=== PATIENT | male | born 1975 | race Caucasian/White ===

== ENCOUNTER 2016-10-12 08:11 | Emergency (ER) | payer OTHER ==
--- NOTE | 2016-10-12 10:13 | DIAGNOSTIC IMAGING REPORT ---
PROCEDURE: US VENOUS - LEFT EXT INDICATION: Intermittent left lower extremity swelling x 1 week, initial encounter TECHNIQUE: Duplex sonography of the deep venous system in the left lower extremity was performed. Compression and augmentation techniques were used. COMPARISON: None. FINDINGS: Normal compression of the greater saphenous, common femoral, superficial femoral, popliteal, peroneal, and posterior tibial veins. Normal augmentation. There is no evidence of superficial or deep venous thrombosis. IMPRESSION: 1. Negative venous ultrasound of the left lower extremity.
--- NOTE | 2016-10-12 12:44 | DIAGNOSTIC IMAGING REPORT ---
PROCEDURE: XR CHEST 1 VIEW INDICATION: CHEST PAIN TECHNIQUE: Portable AP view 09:00 a.m. COMPARISON: None. FINDINGS: Lungs are clear. Heart and mediastinum are normal. Thorax is normal. IMPRESSION: 1. Negative chest.
--- NOTE | 2016-10-12 15:37 | DIAGNOSTIC IMAGING REPORT ---
PROCEDURE: CTA THORAX WITH CONTRAST INDICATION: CHEST PAIN, initial encounter TECHNIQUE: 112 ml of Isovue 370 was injected intravenously and axial images were obtained of the entire thorax with 3D sagittal and coronal MIP reconstructions. COMPARISON: Chest x-ray 10/12/2016 FINDINGS: No evidence of pulmonary emboli. Lungs are clear. No adenopathy or effusion. Normal thoracic aorta without dissection or aneurysm. No coronary atherosclerosis. Heart size is normal. Normal visualized upper abdomen. Mild degenerative changes of the spine. IMPRESSION: 1. No evidence of pulmonary emboli, aortic dissection or aneurysm 2. Results discussed with Dr. Linares
--- NOTE | 2016-10-12 15:57 | ED CLINICAL REPORT ---
Clinical Report - Physicians/Mid Levels [facility] [address] [place] [address] 10/12/2016 8:14 Patient: ERIC CHIANG Time Seen: 09:00 Oct 12 2016. Arrived- By private vehicle. Historian- patient. CPT: ER phys charges level 5 plus (#[id number]). EKG interpretation (#[id number]). HISTORY OF PRESENT ILLNESS Chief Complaint: CHEST DISCOMFORT. At its maximum, severity described as moderate. When seen in the E.D., severity described as moderate. Modifying factors. Not worsened by anything. Not relieved by anything. It is described as pressure and tightness and it is described as located in the left chest area and left shoulder and arm. This started today This started just prior to arrival and today. He has had difficulty breathing. ( "pulling sensation in left leg" last week). and is still present. Onset during light activity. No nausea, vomiting, difficulty breathing or diaphoresis. Similar symptoms previously: None. Recent medical care: Not recently seen/assessed. REVIEW OF SYSTEMS No fever, chills, cough, pedal edema or calf pain. No fainting episodes, sore throat, abdominal pain, black stools or difficulty with urination. No skin rash, enlarged lymph nodes, joint pain or bloody stools. All systems otherwise negative, except as recorded above. PAST HISTORY See nurses notes. Hemorrhoids. No history of heart disease, lung disease, renal disease, neurological disease or GI disease. No history of hypertension, hyperlipidemia or diabetes mellitus. Problems: no known problems. Additional Surgeries: no known surgeries. Medications: None. Allergies: Penicillins. SOCIAL HISTORY Former smoker. Alcohol use. History of drug use: marijuana. FAMILY HISTORY Negative. ADDITIONAL NOTES The nursing notes have been reviewed. PHYSICAL EXAM Vital Signs: 10/12/2016 08:18 BP: 127/104. HR: 71. RR: 18. O2 saturation: 100%. Temp: 97.8 F. Pain level now: 3/10. Appearance: Alert. Anxious. Patient in mild distress. Eyes: Pupils equal, round and reactive to light. Eyes normal inspection. ENT: Ears normal. Nose normal. Pharynx normal. Neck: Normal inspection. Neck supple. CVS: Normal heart rate and rhythm. Heart sounds normal. Pulses normal. No cardiac murmur. Respiratory: No respiratory distress. Chest pain reproducible with palpation of the lateral and posterior chest wall, with movement of the trunk and left arm and with deep breathing (Sharp pain but different from the anterior pressure.). Breath sounds normal. Abdomen: Soft and nontender. Bowel sounds normal. Back: Normal external inspection. Skin: Skin warm. Normal skin color. No rash. Extremities: No calf tenderness. (Tender over the medial thigh.). Neuro: Oriented X 3. No motor deficit. No sensory deficit. Reflexes normal. LABS, X-RAYS, AND EKG EKG: Normal EKG. EKG #2: EKG time: (12:52 PM). No acute process. No acute ischemia. Normal sinus rhythm. Normal P waves. Normal SHANNON. Normal QRS complex. Normal axis. Normal ST and T waves. EKG unchanged when compared with prior EKG. The study has been interpreted contemporaneously. The study has been independently viewed by me. The EKG appears to be a good tracing. Chest X-ray: Normal Chest X-Ray. Chest CT: No infiltrate, pneumothorax, pleural effusion or aortic dissection or aneurysm present. No pulmonary embolism, mediastinal air, mediastinal mass or pericardial effusion. Chest CT performed with contrast. The study was independently viewed by me, interpreted by the radiologist and discussed with the radiologist. Lower Extremity Sonography: Negative study. Laboratory Tests: CBC w Diff: (DANIA: 10/12/2016 08:34) ( MsgRcvd 10/12/2016 09:11) Final results Test Result Flag Units (Reference) WHITE BLOOD COUNT 7.3 K/uL (4.5-11.5) RED BLOOD COUNT 5.09 M/uL (4.50-5.90) HEMOGLOBIN 14.9 gm/dL (13.5-17.5) HEMATOCRIT 44.2 % (41.0-53.0) MEAN CELL VOLUME 87 fL (80-100) MEAN CORPUSCULAR HGB 29 pg (26-34) MEAN CORPUSCULAR HGB CONC 34 g/dL (31-37) RED CELL DISTRIBUTION WIDTH 13.0 % (11.6-14.8) PLATELET COUNT 230 K/uL (150-400) NEUTROPHIL % 78.1 H % (50-75) LYMPH % 14.2 L % (25-40) MONO % 6.0 % (3-14) EOSINOPHIL % 0.9 % (0-4) BASOPHIL % 0.8 % (0-2) [id number]: (DANIA: 10/12/2016 08:34) ( MsgRcvd 10/12/2016 09:52) Final results Test Result Flag Units (Reference) D-DIMER QUANTITATIVE 0.39 ug/mLFEU (0.27-0.52) The primary value of this quantitative assay relates toits negative predictive value (i.e. exclusion) of pulmonaryembolism/deep vein thrombosis/DIC.Elevated levels of d-dimer may also occur with:, age, cancer, inflammation, liver disease,post-op, infection, hematoma, coronary disease, peripheralarteriopathy, bleeding disorders and thrombolytic treatment.Results should be correlated with other clinical andradiological data.Testing Methodology: Latex Immunoassay CMP: (DANIA: 10/12/2016 08:34) ( MsgRcvd 10/12/2016 09:14) Final results Test Result Flag Units (Reference) GLUCOSE 118 H mg/dL (70-110) BUN 11 mg/dL (7-18) CREATININE 0.9 mg/dL (0.6-1.3) Estimated GFR >60 mL/min Estimated GFR- >60 mL/min Note: Persistent reduction over 3 months in eGFR<60 mL/min/1.73 m2 defines CKD. Patients with eGFR values>=60 mL/min/1.73 m2 may also have CKD if evidence ofpersistent proteinuria. Additional information may be foundat [email or web address]. SODIUM 144 mmol/L (136-145) POTASSIUM 4.0 mmol/L (3.5-5.1) CHLORIDE 108 H mmol/L (98-107) CARBON DIOXIDE 23 mmol/L (21-32) CALCIUM 8.7 mg/dL (8.5-10.1) TOTAL PROTEIN 7.0 g/dL (6.4-8.2) ALBUMIN 3.8 g/dL (3.3-5.0) BILIRUBIN, TOTAL 0.3 mg/dL (0.0-1.0) ALKALINE PHOSPHATASE 48 U/L (46-116) AST (SGOT) 19 U/L (15-37) ALT (SGPT) 31 U/L (12-78) LIPASE 141 U/L (73-393) AMYLASE 46 U/L (25-115) CPK 157 U/L (24-260) TROPONIN I <0.05 L ng/mL (0.00-1.5) TROPONIN REFERENCE RANGE:<0.1 NEGATIVE0.1-1.5 INDETERMINANT>1.5 POSITIVE . PROGRESS AND PROCEDURES Course of Care: Toradol 30 mg IV and Ativan 0.5 mg IV NO real change. NTG times 3 no real change in pain White GI cocktail : No change. Pt with chest pressure that is severe but nothing appears to affect it . Not reproducible on exam very well. Does have an area of sharp CP that is point tender over the left , lateral chest wall but is not the same pain. CTA to r/o ascending disswection vs other chest pathology. No emergent condition identified to cause the anterior chest pressure. Pt will follow up with PCP to evaluate further. Patient/family counseled. Disposition: Discharged. Condition: stable. CLINICAL IMPRESSION Atypical chest pain .12 lead EKG performed. INSTRUCTIONS No strenuous activity. Rest. Avoid stimulants (such as cigarettes, coffee, cold medicines, sinus medicines, street drugs). Do not smoke. No alcohol. Warnings: Further evaluation is necessary. SEDATIVE MEDICATION: You were given sedative medication during your visit. Do not drive or operate dangerous machinery. GENERAL WARNINGS: Return or contact your physician immediately if your condition worsens or changes unexpectedly, if not improving as expected, or if other problems arise. Prescription Medications: Hydrocodone/APAP 5mg/325mg: take 1 to 2 orally every 6 hours as needed for pain. Dispense fifteen (15). No refills. Ibuprofen 600mg tablets: take 1 tablet orally every 8 hours as needed for pain. Dispense thirty (30). No refills. Soma 350 mg: Take 1 orally every 6 hours as needed for muscle spasm. Dispense twenty (20). No refills. Substitution is permissible. Understanding of the discharge instructions verbalized by patient. Follow-up with: [facility], , , [address], , [place], [address] Follow up in two days. Call for the next available appointment. (Electronically signed by Palomo Linares MD 10/13/2016 12:38)
--- NOTE | 2016-10-12 15:57 | ED CLINICAL REPORT ---
Clinical Report - Physicians/Mid Levels [facility] [address] [place] [address] 10/12/2016 8:14 Patient: ERIC CHIANG Time Seen: 09:00 Oct 12 2016. Arrived- By private vehicle. Historian- patient. CPT: ER phys charges level 5 plus (#[id number]). EKG interpretation (#[id number]). HISTORY OF PRESENT ILLNESS Chief Complaint: CHEST DISCOMFORT. At its maximum, severity described as moderate. When seen in the E.D., severity described as moderate. Modifying factors. Not worsened by anything. Not relieved by anything. It is described as pressure and tightness and it is described as located in the left chest area and left shoulder and arm. This started today This started just prior to arrival and today. He has had difficulty breathing. ( "pulling sensation in left leg" last week). and is still present. Onset during light activity. No nausea, vomiting, difficulty breathing or diaphoresis. Similar symptoms previously: None. Recent medical care: Not recently seen/assessed. REVIEW OF SYSTEMS No fever, chills, cough, pedal edema or calf pain. No fainting episodes, sore throat, abdominal pain, black stools or difficulty with urination. No skin rash, enlarged lymph nodes, joint pain or bloody stools. All systems otherwise negative, except as recorded above. PAST HISTORY See nurses notes. Hemorrhoids. No history of heart disease, lung disease, renal disease, neurological disease or GI disease. No history of hypertension, hyperlipidemia or diabetes mellitus. Problems: no known problems. Additional Surgeries: no known surgeries. Medications: None. Allergies: Penicillins. SOCIAL HISTORY Former smoker. Alcohol use. History of drug use: marijuana. FAMILY HISTORY Negative. ADDITIONAL NOTES The nursing notes have been reviewed. PHYSICAL EXAM Vital Signs: 10/12/2016 08:18 BP: 127/104. HR: 71. RR: 18. O2 saturation: 100%. Temp: 97.8 F. Pain level now: 3/10. Appearance: Alert. Anxious. Patient in mild distress. Eyes: Pupils equal, round and reactive to light. Eyes normal inspection. ENT: Ears normal. Nose normal. Pharynx normal. Neck: Normal inspection. Neck supple. CVS: Normal heart rate and rhythm. Heart sounds normal. Pulses normal. No cardiac murmur. Respiratory: No respiratory distress. Chest pain reproducible with palpation of the lateral and posterior chest wall, with movement of the trunk and left arm and with deep breathing (Sharp pain but different from the anterior pressure.). Breath sounds normal. Abdomen: Soft and nontender. Bowel sounds normal. Back: Normal external inspection. Skin: Skin warm. Normal skin color. No rash. Extremities: No calf tenderness. (Tender over the medial thigh.). Neuro: Oriented X 3. No motor deficit. No sensory deficit. Reflexes normal. LABS, X-RAYS, AND EKG EKG: Normal EKG. EKG #2: EKG time: (12:52 PM). No acute process. No acute ischemia. Normal sinus rhythm. Normal P waves. Normal SHANNON. Normal QRS complex. Normal axis. Normal ST and T waves. EKG unchanged when compared with prior EKG. The study has been interpreted contemporaneously. The study has been independently viewed by me. The EKG appears to be a good tracing. Chest X-ray: Normal Chest X-Ray. Chest CT: No infiltrate, pneumothorax, pleural effusion or aortic dissection or aneurysm present. No pulmonary embolism, mediastinal air, mediastinal mass or pericardial effusion. Chest CT performed with contrast. The study was independently viewed by me, interpreted by the radiologist and discussed with the radiologist. Lower Extremity Sonography: Negative study. Laboratory Tests: CBC w Diff: (DANIA: 10/12/2016 08:34) ( MsgRcvd 10/12/2016 09:11) Final results Test Result Flag Units (Reference) WHITE BLOOD COUNT 7.3 K/uL (4.5-11.5) RED BLOOD COUNT 5.09 M/uL (4.50-5.90) HEMOGLOBIN 14.9 gm/dL (13.5-17.5) HEMATOCRIT 44.2 % (41.0-53.0) MEAN CELL VOLUME 87 fL (80-100) MEAN CORPUSCULAR HGB 29 pg (26-34) MEAN CORPUSCULAR HGB CONC 34 g/dL (31-37) RED CELL DISTRIBUTION WIDTH 13.0 % (11.6-14.8) PLATELET COUNT 230 K/uL (150-400) NEUTROPHIL % 78.1 H % (50-75) LYMPH % 14.2 L % (25-40) MONO % 6.0 % (3-14) EOSINOPHIL % 0.9 % (0-4) BASOPHIL % 0.8 % (0-2) [id number]: (DANIA: 10/12/2016 08:34) ( MsgRcvd 10/12/2016 09:52) Final results Test Result Flag Units (Reference) D-DIMER QUANTITATIVE 0.39 ug/mLFEU (0.27-0.52) The primary value of this quantitative assay relates toits negative predictive value (i.e. exclusion) of pulmonaryembolism/deep vein thrombosis/DIC.Elevated levels of d-dimer may also occur with:, age, cancer, inflammation, liver disease,post-op, infection, hematoma, coronary disease, peripheralarteriopathy, bleeding disorders and thrombolytic treatment.Results should be correlated with other clinical andradiological data.Testing Methodology: Latex Immunoassay CMP: (DANIA: 10/12/2016 08:34) ( MsgRcvd 10/12/2016 09:14) Final results Test Result Flag Units (Reference) GLUCOSE 118 H mg/dL (70-110) BUN 11 mg/dL (7-18) CREATININE 0.9 mg/dL (0.6-1.3) Estimated GFR >60 mL/min Estimated GFR- >60 mL/min Note: Persistent reduction over 3 months in eGFR<60 mL/min/1.73 m2 defines CKD. Patients with eGFR values>=60 mL/min/1.73 m2 may also have CKD if evidence ofpersistent proteinuria. Additional information may be foundat [email or web address]. SODIUM 144 mmol/L (136-145) POTASSIUM 4.0 mmol/L (3.5-5.1) CHLORIDE 108 H mmol/L (98-107) CARBON DIOXIDE 23 mmol/L (21-32) CALCIUM 8.7 mg/dL (8.5-10.1) TOTAL PROTEIN 7.0 g/dL (6.4-8.2) ALBUMIN 3.8 g/dL (3.3-5.0) BILIRUBIN, TOTAL 0.3 mg/dL (0.0-1.0) ALKALINE PHOSPHATASE 48 U/L (46-116) AST (SGOT) 19 U/L (15-37) ALT (SGPT) 31 U/L (12-78) LIPASE 141 U/L (73-393) AMYLASE 46 U/L (25-115) CPK 157 U/L (24-260) TROPONIN I <0.05 L ng/mL (0.00-1.5) TROPONIN REFERENCE RANGE:<0.1 NEGATIVE0.1-1.5 INDETERMINANT>1.5 POSITIVE . PROGRESS AND PROCEDURES Course of Care: Toradol 30 mg IV and Ativan 0.5 mg IV NO real change. NTG times 3 no real change in pain White GI cocktail : No change. Pt with chest pressure that is severe but nothing appears to affect it . Not reproducible on exam very well. Does have an area of sharp CP that is point tender over the left , lateral chest wall but is not the same pain. CTA to r/o ascending disswection vs other chest pathology. No emergent condition identified to cause the anterior chest pressure. Pt will follow up with PCP to evaluate further. Patient/family counseled. Disposition: Discharged. Condition: stable. CLINICAL IMPRESSION Atypical chest pain .12 lead EKG performed. INSTRUCTIONS No strenuous activity. Rest. Avoid stimulants (such as cigarettes, coffee, cold medicines, sinus medicines, street drugs). Do not smoke. No alcohol. Warnings: Further evaluation is necessary. SEDATIVE MEDICATION: You were given sedative medication during your visit. Do not drive or operate dangerous machinery. GENERAL WARNINGS: Return or contact your physician immediately if your condition worsens or changes unexpectedly, if not improving as expected, or if other problems arise. Prescription Medications: Hydrocodone/APAP 5mg/325mg: take 1 to 2 orally every 6 hours as needed for pain. Dispense fifteen (15). No refills. Ibuprofen 600mg tablets: take 1 tablet orally every 8 hours as needed for pain. Dispense thirty (30). No refills. Soma 350 mg: Take 1 orally every 6 hours as needed for muscle spasm. Dispense twenty (20). No refills. Substitution is permissible. Understanding of the discharge instructions verbalized by patient. Follow-up with: [facility], , , [address], , [place], [address] Follow up in two days. Call for the next available appointment. (Electronically signed by Palomo Linares MD 10/13/2016 12:38)
--- NOTE | 2016-10-12 15:58 | ED NURSING NOTES ---
Clinical Report - Nurses [place] [address] [place] [address] 10/12/2016 8:14 [id number] Triage time 08:15. Chief Complaint: (chest "pulling sensation", pak, tingling left arm). --08:16 Heidi Guevara R.N. Acuity: LEVEL 4. Alert. SEPSIS SCREEN: Sepsis Screen. Negative (no infection suspected/documented). --08:24 Heidi Guevara R.N. 08:18 10/12/16. BP: 127/104. HR: 71. RR: 18. O2 saturation: 100%. Temp: 97.8 F. Pain level now: 11/11. --08:24 Heidi Guevara R.N. Weight: 95.2 kg. Height/Length: 73 inches. BMI: 27.7. --08:21 Heidi Guevara R.N. Medications None. --08:21 Heidi Guevara R.N. Allergies Penicillins. --08:21 Heidi Guevara R.N. History Arrived by private vehicle. Historian: patient. --08:16 Heidi Guevara R.N. Primary physician (none). This started just prior to arrival and today. He has had difficulty breathing. ( "pulling sensation in left leg" last week). PAST MEDICAL HX: Negative. Immunizations: up-to-date. SURGERY HX: No history of previous surgery. SOCIAL HX: Former smoker, end date 1994. Alcohol use; consumes six beers a week. History of occasional drug use: marijuana. NUTRITIONAL RISK ASSESSMENT: The nutritional risk assessment revealed no deficiencies. FUNCTIONAL ASSESSMENT: Functional assessment: no impairments noted. LEARNING NEEDS ASSESSMENT: The learning needs assessment revealed no barriers. SKIN INTEGRITY ASSESSMENT: Skin integrity risk assessment completed. No skin integrity risk identified. --08:24 Heidi Guevara R.N. PROBLEMS: Hemorrhoids. --08:19 Heidi Guevara R.N. Interventions ID and allergy band on patient. To room. --08:24 Heidi Guevara R.N. PHYSICAL ASSESSMENT 08:25 10/12/16. Patient gowned. GENERAL / NEURO / PSYCH: Alert. Oriented X 4. Appears in no acute distress. RESPIRATORY: Respirations not labored. --08:25 Heidi Guevara R.N. RESPIRATORY: ( Pt states he has "no energy" today). --08:25 Heidi Guevara R.N. NURSING PROGRESS NOTES 08:25 10/12/16. Head of bed elevated. Patient identifiers checked. Call light placed in reach. Bed placed in lowest position. Patient ready for evaluation- chart flagged. --08:25 Heidi Guevara R.N. EKG time: (834). EKG was ordered, performed by a tech and shown to the ED physician. --08:40 Sheree Becerril, HERMAN Tech1 08:47 10/12/2016 Site #1 started via IV in the right forearm with an 20g angiocath, with aseptic technique and good blood return; one attempt. Blood drawn: rainbow set. Labeled in the presence of the patient and sent to the lab. Saline lock flushed with 10 mL saline. --09:13 Heidi Guevara R.N. 09:35 10/12/2016 Aspirin PO 325 mg given. Allergies verified and confirmed 5 rights. --09:35 Heidi Guevara R.N. 09:00. composition stone applicator, pulse oximeter and NIBP monitor placed on patient; writing tutor- Lead II and V1; monitor alarms on. --10:21 Heidi Guevara R.N. 10:45 10/12/16. BP: 115/77. HR: 81. RR: 18. O2 saturation: 98%. --12:18 Heidi Guevara R.N. 11:15 10/12/16. BP: 120/78. HR: 79. RR: 18. O2 saturation: 99%. --12:19 Heidi Guevara R.N. 11:45 10/12/16. BP: 112/69. --12:21 Heidi Guevara R.N. 12:12 10/12/2016 Toradol IVP 30 mg given over 2 minute(s) via site #1. Allergies verified and confirmed 5 rights. --12:22 Heidi Guevara R.N. 12:14 10/12/2016 Ativan (LORazepam) IVP 0.5 mg given over 1 minute(s) via site #1. Confirmed 5 rights and sedative warning given. --12:23 Heidi Guevara R.N. EKG time: (1252). EKG was ordered, performed by a tech and shown to the ED physician. --12:52 Sheree Becerril, ER Tech1 13:02 10/12/2016 Nitroglycerin SL 0.4 mg given. Confirmed 5 rights. --13:04 Heidi Guevara R.N. 13:00. ( Pt states it feels like someone is sitting on his chest.). --13:05 Heidi Guevara R.N. 12:55 10/12/16. BP: 110/73. HR: 68. RR: 18. O2 saturation: 97% on nasal cannula at 2 liters/minute. --13:08 Heidi Guevara R.N. 13:07 10/12/2016 Nitroglycerin SL Tablets 0.4 mg given. Confirmed 5 rights. --13:09 Heidi Guevara R.N. 13:09 10/12/16. BP: 100/61. HR: 72. RR: 18. O2 saturation: 97% on nasal cannula at 2 liters/minute. Pain level now: 10/10. Additional comments: Pt states it hurts more when takes a deep breath. --13:10 Heidi Guevara R.N. 13:13 10/12/2016 Nitroglycerin SL 0.4 mg given. Confirmed 5 rights. --13:13 Heidi Guevara R.N. Care transferred and report given (to ELICEO Dorado). --13:27 Heidi Guevara R.N. <<STRICKEN ENTRY-- 14:01 10/12/16. BP: 103/68. HR: 59. O2 saturation: 100% on room air. --14:01 Ave Gleason --END STRIKE>> Correction. --14:01 Ave Gleason 14:01 10/12/16. BP: 103/68. HR: 59. O2 saturation: 100% on nasal cannula at 2 liters/minute. --14:01 Ave Gleason 14:29 10/12/16. Pain level now 03/13. --14:29 Ave Gleason 14:36 10/12/2016 GI COCKTAIL WHITE (Simethicone) PO Oral Suspension 50 mL given. Allergies verified and confirmed 5 rights. --14:36 Ave Gleason Patient transported to radiology by stretcher with nurse. (14:57 Oct 12 2016). --15:05 Ave Gleason 15:48 10/12/16. BP: 116/76. HR: 69. O2 saturation: 98% on room air. --15:49 Ave Gleason 14:45 10/12/16. ( No improvement after GI cocktail). --15:55 Ave Gleason 16:03 10/12/2016 Site #1 removed upon discharge. Catheter intact. Pressure dressing applied. --16:03 Ave Gleason 16:03 10/12/2016 IV Saline Lock Drip IV Discontinued. Total amount infused: 0 mL. --16:03 [address] Gle[facility]. DISPOSITION / DISCHARGE 16:02 10/12/16. Condition at departure: improved. The goals identified in the patient's plan of care were met. FALL RISK ASSESSMENT: Fall risk assessment completed. No fall risk identified. --16:02 Ave Gleason 16:02 10/12/16. BP: 116/76. HR: 71. RR: 14. O2 saturation: 99% on room air. Temp: 98.6 F. Pain level now: 03/13. --16:02 Ave Gleason 16:07 10/12/16. Departure time: :Oct 12 2016. No learning barriers present. Discharge instructions provided and reviewed with the patient. Reviewed warnings (Patient verbalized awareness of warning s/sx listed in dc paperwork. Pt verbalized understanding of sedation warning.). Reviewed medication(s) (Vicoden, Ibuprofen, Some). Treatments reviewed. Reviewed referral to a primary care physician for followup. Patient verbalized understanding. Written instructions provided in Bulgarian. The patient was discharged by the physician. He was discharged home and unaccompanied at time of discharge. He left the Emergency Department ambulatory and via private vehicle. Patient driving. --16:07 Ave [address]. Locked/Released at 10/14/2016 14:[address],
--- NOTE | 2016-10-12 15:58 | ED ORDER SUMMARY ---
..... Patient: ERIC CHIANG OrderSheet [facility] VisitID: [id number] [place] [address] 41y, M Registration Date/Time: 10/12/2016 ORDER SHEET Weight: 95.2 kg Allergies: Penicillins GENERAL ORDERS: Chest 1V Urgent (08:45 10/12/2016 Aranza BELL) (Ack 8:59 LMuller) (9:35 LSullivan R.N.) Ad Taker (Continuous) (08:45 10/12/2016 Aranza BELL) (Ack 8:59 LMuller) (10:20 LSullivan R.N.) CBC w Diff Urgent (08:45 10/12/2016 Aranza BELL) (Ack 8:59 LMuller) (9:13 LSullivan R.N.) CMP Urgent (08:45 10/12/2016 Aranza BELL) (Ack 8:59 LMuller) (9:13 LSullivan R.N.) Amylase Urgent (08:45 10/12/2016 Aranza BELL) (Ack 8:59 LMuller) (9:13 LSullivan R.N.) Lipase Urgent (08:45 10/12/2016 Aranza BELL) (Ack 8:59 LMuller) (9:13 LSullivan R.N.) CPK Urgent (08:45 10/12/2016 Aranza BELL) (Ack 8:59 LMuller) (9:13 LSullivan R.N.) Troponin-I Urgent (08:45 10/12/2016 Aranza BELL) (Ack 8:59 LMuller) (9:13 LSullivan R.N.) Oxygen (2 L/min) (NC) (08:45 10/12/2016 Aranza BELL) (Ack 8:59 LMuller) (13:24 ASchmuck) Pulse oximeter (08:45 10/12/2016 Aranza BELL) (Ack 8:59 LMuller) (9:13 LSullivan R.N.) EKG - ER Stat (08:45 10/12/2016 Aranza BELL) (Ack 8:59 LMuller) (9:13 LSullivan R.N.) D-Dimer Urgent (09:31 10/12/2016 Mayela BELL) (9:33 LMuller) US Venous Left Urgent (09:31 10/12/2016 Mayela BELL) (Ack 9:33 LMuller) (9:39 LMuller) Troponin-I Urgent (12:41 10/12/2016 Mayela BELL) (Ack 12:45 LMuller) (13:50 ASchmuck) EKG - ER Stat (12:41 10/12/2016 Mayela BELL) (Ack 12:45 LMuller) (12:51 LNations ER Tech1) CTA Thorax w Cont (No) (N/A) Urgent (14:44 10/12/2016 Mayela BELL) (Ack 14:47 LMuller) (14:57 LMuller) MEDICATION ORDERS: Aspirin PO 325 mg (NOW) (08:45 10/12/2016 Aranza BELL) (9:35 LSullivan R.N.) NitroGLYCERIN SL 0.4 mg (x3 PRN Chest Pain) (12:41 10/12/2016 Mayela BELL) (13:04 LSullivan R.N.) GI Cocktail WHITE PO 50 mL (NOW) (14:29 10/12/2016 Mayela BELL) (14:36 ASchmuck) IV FLUIDS: IV Saline Lock (08:45 10/12/2016 Aranza BELL) (9:13 LSullivan R.N.) Toradol IV 30 mg (NOW) (11:46 10/12/2016 Mayela BELL) (12:22 LSullivan R.N.) Ativan IV 0.5 mg (NOW) (11:46 10/12/2016 Mayela BELL) (12:23 LSullivan R.N.) ORDER SHEET NOTES: [Electronically signed by Palomo Linares MD (12:38 10/13/2016)] [Electronically signed by Ave Gleason (14:25 10/14/2016)] [Electronically locked/signed by Ave Gleason (14:25 10/14/2016)]
--- NOTE | 2016-10-12 15:58 | ED ORDER SUMMARY ---
..... Patient: ERIC CHIANG OrderSheet [facility] VisitID: [id number] [place] [address] 41y, M Registration Date/Time: 10/12/2016 ORDER SHEET Weight: 95.2 kg Allergies: Penicillins GENERAL ORDERS: Chest 1V Urgent (08:45 10/12/2016 Aranza BELL) (Ack 8:59 LMuller) (9:35 LSullivan R.N.) Treasury Director (Continuous) (08:45 10/12/2016 Aranza BELL) (Ack 8:59 LMuller) (10:20 LSullivan R.N.) CBC w Diff Urgent (08:45 10/12/2016 Aranza BELL) (Ack 8:59 LMuller) (9:13 LSullivan R.N.) CMP Urgent (08:45 10/12/2016 Aranza BELL) (Ack 8:59 LMuller) (9:13 LSullivan R.N.) Amylase Urgent (08:45 10/12/2016 Aranza BELL) (Ack 8:59 LMuller) (9:13 LSullivan R.N.) Lipase Urgent (08:45 10/12/2016 Aranza BELL) (Ack 8:59 LMuller) (9:13 LSullivan R.N.) CPK Urgent (08:45 10/12/2016 Aranza BELL) (Ack 8:59 LMuller) (9:13 LSullivan R.N.) Troponin-I Urgent (08:45 10/12/2016 Aranza BELL) (Ack 8:59 LMuller) (9:13 LSullivan R.N.) Oxygen (2 L/min) (NC) (08:45 10/12/2016 Aranza BELL) (Ack 8:59 LMuller) (13:24 ASchmuck) Pulse oximeter (08:45 10/12/2016 Aranza BELL) (Ack 8:59 LMuller) (9:13 LSullivan R.N.) EKG - ER Stat (08:45 10/12/2016 Aranza BELL) (Ack 8:59 LMuller) (9:13 LSullivan R.N.) D-Dimer Urgent (09:31 10/12/2016 Mayela BELL) (9:33 LMuller) US Venous Left Urgent (09:31 10/12/2016 Mayela BELL) (Ack 9:33 LMuller) (9:39 LMuller) Troponin-I Urgent (12:41 10/12/2016 Mayela BELL) (Ack 12:45 LMuller) (13:50 ASchmuck) EKG - ER Stat (12:41 10/12/2016 Mayela BELL) (Ack 12:45 LMuller) (12:51 LNations ER Tech1) CTA Thorax w Cont (No) (N/A) Urgent (14:44 10/12/2016 Mayela BELL) (Ack 14:47 LMuller) (14:57 LMuller) MEDICATION ORDERS: Aspirin PO 325 mg (NOW) (08:45 10/12/2016 Aranza BELL) (9:35 LSullivan R.N.) NitroGLYCERIN SL 0.4 mg (x3 PRN Chest Pain) (12:41 10/12/2016 Mayela BELL) (13:04 LSullivan R.N.) GI Cocktail WHITE PO 50 mL (NOW) (14:29 10/12/2016 Mayela BELL) (14:36 ASchmuck) IV FLUIDS: IV Saline Lock (08:45 10/12/2016 Aranza BELL) (9:13 LSullivan R.N.) Toradol IV 30 mg (NOW) (11:46 10/12/2016 Mayela BELL) (12:22 LSullivan R.N.) Ativan IV 0.5 mg (NOW) (11:46 10/12/2016 Mayela BELL) (12:23 LSullivan R.N.) ORDER SHEET NOTES: [Electronically signed by Palomo Linares MD (12:38 10/13/2016)] [Electronically signed by Ave Gleason (14:25 10/14/2016)] [Electronically locked/signed by Ave Gleason (14:25 10/14/2016)]
--- NOTE | 2016-10-14 14:26 | ED DISCHARGE INSTRUCTIONS ---
Patient: ERIC CHIANG General Instructions [facility] VisitID: [id number] [address] [place] [address] 41y, M Registration Date/Time: 10/12/2016 Atypical chest pain .12 lead EKG performed. INSTRUCTIONS No strenuous activity. Rest. Avoid stimulants (such as cigarettes, coffee, cold medicines, sinus medicines, street drugs). Do not smoke. No alcohol. Warnings: Further evaluation is necessary. SEDATIVE MEDICATION: You were given sedative medication during your visit. Do not drive or operate dangerous machinery. GENERAL WARNINGS: Return or contact your physician immediately if your condition worsens or changes unexpectedly, if not improving as expected, or if other problems arise. Prescription Medications: Hydrocodone/APAP 5mg/325mg: take 1 to 2 orally every 6 hours as needed for pain. Dispense fifteen (15). No refills. Ibuprofen 600mg tablets: take 1 tablet orally every 8 hours as needed for pain. Dispense thirty (30). No refills. Soma 350 mg: Take 1 orally every 6 hours as needed for muscle spasm. Dispense twenty (20). No refills. Substitution is permissible. Understanding of the discharge instructions verbalized by patient. Follow-up with: [facility], , , [address], , [place], [address] Follow up in two days. Call for the next available appointment. ADDITIONAL INFORMATION Chest Pain, Noncardiac Based on your visit today, the exact cause of your chest pain is not certain. Your condition does not seem serious and your pain does not appear to be coming from your heart. However, sometimes the signs of a serious problem take more time to appear. Therefore, please watch for the warning signs listed below. Home Care: Rest today and avoid strenuous activity. Take any prescribed medicine as directed. Follow Up with your doctor or this facility as instructed or if you do not start to feel better within 24 hours. Get Prompt Medical Attention if any of the following occur: A change in the type of pain: if it feels different, becomes more severe, lasts longer, or begins to spread into your shoulder, arm, neck, jaw or back Shortness of breath or increased pain with breathing Cough with dark colored sputum (phlegm) or blood Weakness, dizziness, or fainting Fever of 100.4F (38C) or higher, or as directed by your healthcare provider Swelling, pain or redness in one leg You have been given the following additional information: Chest Pain, Noncardiac No strenuous activity. Rest. (Electronically signed by Palomo Linares MD 10/13/2016 12:38)
--- NOTE | 2016-10-14 14:26 | ED MED RECONCILIATION SUMMARY ---
Patient: ERIC CHIANG Medication Reconciliation Report [facility] VisitID: [id number] [address] [place] [address] 41y, M Registration Date/Time: 10/12/2016 Weight: 95.2 kg Height/Length: 73 in. BMI: 27.7 ALLERGIES: Penicillins The patient's Home Medications are listed below: NONE. The source(s) of the original Home Medication information: Not obtained. The following Medications were given to the patient in the Emergency Department: Aspirin [PO] PO 325 mg, administered: 10/12/2016 9:35:00 AM Toradol [IVP] IVP 30 mg, administered: 10/12/2016 12:12:00 PM Ativan [IVP] IVP 0.5 mg, administered: 10/12/2016 12:14:00 PM Nitroglycerin [SL] SL 0.4 mg, administered: 10/12/2016 1:02:00 PM Nitroglycerin [SL] SL 0.4 mg, administered: 10/12/2016 1:07:00 PM Nitroglycerin [SL] SL 0.4 mg, administered: 10/12/2016 1:13:00 PM GI COCKTAIL WHITE [PO] PO 50 mL, administered: 10/12/2016 2:36:00 PM The following Medications were prescribed to the patient: Hydrocodone/APAP 5mg/325mg: take 1 to 2 orally every 6 hours as needed for pain. Dispense fifteen (15). No refills. -- Palomo Linares MD Ibuprofen 600mg tablets: take 1 tablet orally every 8 hours as needed for pain. Dispense thirty (30). No refills. -- Palomo Linares MD Soma 350 mg: Take 1 orally every 6 hours as needed for muscle spasm. Dispense twenty (20). No refills. Substitution is permissible. -- Palomo Linares MD
--- NOTE | 2016-10-14 14:26 | ED MAR SUMMARY ---
..... Medication Administration Record [facility] [address] [place] [address] Patient: ERIC CHIANG Visit ID: [id number] 41y, M Weight: 95.2 kg Height/Length: 73 in BMI: 27.7 ALLERGIES: Penicillins Given 09:35 10/12/2016 Heidi Guevara R.N. Medication Administered: ASPIRIN [PO], Dose: 325 mg PO. Medication Ordered: Aspirin PO 325 mg (NOW). Given 12:12 10/12/2016 Heidi Guevara R.N. Medication Administered: TORADOL [IVP], Dose: 30 mg IVP over 2 minute(s), Site: #1 right forearm. Medication Ordered: Toradol IV 30 mg (NOW). Given 12:14 10/12/2016 Heidi Guevara R.N. Medication Administered: ATIVAN [IVP] (LORAZEPAM), Dose: 0.5 mg IVP over 1 minute(s), Site: #1 right forearm. Medication Ordered: Ativan IV 0.5 mg (NOW). Given 13:02 10/12/2016 Heidi Guevara R.N. Medication Administered: NITROGLYCERIN [SL], Dose: 0.4 mg SL. Medication Ordered: NitroGLYCERIN SL 0.4 mg (x3 PRN Chest Pain). Given 13:07 10/12/2016 Heidi Guevara R.N. Medication Administered: NITROGLYCERIN [SL], Dose: 0.4 mg Tablets SL. Medication Ordered: NitroGLYCERIN SL 0.4 mg (x3 PRN Chest Pain). Given 13:13 10/12/2016 Heidi Guevara R.N. Medication Administered: NITROGLYCERIN [SL], Dose: 0.4 mg SL. Medication Ordered: NitroGLYCERIN SL 0.4 mg (x3 PRN Chest Pain). Given 14:36 10/12/2016 Ave Gleason, Medication Administered: GI COCKTAIL WHITE [PO] (SIMETHICONE), Dose: 50 mL Oral Suspension PO. Medication Ordered: GI Cocktail WHITE PO 50 mL (NOW).
--- NOTE | 2016-10-14 14:26 | ED MAR SUMMARY ---
..... Medication Administration Record [facility] [address] [place] [address] Patient: ERIC CHIANG Visit ID: [id number] 41y, M Weight: 95.2 kg Height/Length: 73 in BMI: 27.7 ALLERGIES: Penicillins Given 09:35 10/12/2016 Heidi Guevara R.N. Medication Administered: ASPIRIN [PO], Dose: 325 mg PO. Medication Ordered: Aspirin PO 325 mg (NOW). Given 12:12 10/12/2016 Heidi Guevara R.N. Medication Administered: TORADOL [IVP], Dose: 30 mg IVP over 2 minute(s), Site: #1 right forearm. Medication Ordered: Toradol IV 30 mg (NOW). Given 12:14 10/12/2016 Heidi Guevara R.N. Medication Administered: ATIVAN [IVP] (LORAZEPAM), Dose: 0.5 mg IVP over 1 minute(s), Site: #1 right forearm. Medication Ordered: Ativan IV 0.5 mg (NOW). Given 13:02 10/12/2016 Heidi Guevara R.N. Medication Administered: NITROGLYCERIN [SL], Dose: 0.4 mg SL. Medication Ordered: NitroGLYCERIN SL 0.4 mg (x3 PRN Chest Pain). Given 13:07 10/12/2016 Heidi Guevara R.N. Medication Administered: NITROGLYCERIN [SL], Dose: 0.4 mg Tablets SL. Medication Ordered: NitroGLYCERIN SL 0.4 mg (x3 PRN Chest Pain). Given 13:13 10/12/2016 Heidi Guevara R.N. Medication Administered: NITROGLYCERIN [SL], Dose: 0.4 mg SL. Medication Ordered: NitroGLYCERIN SL 0.4 mg (x3 PRN Chest Pain). Given 14:36 10/12/2016 Ave Gleason, Medication Administered: GI COCKTAIL WHITE [PO] (SIMETHICONE), Dose: 50 mL Oral Suspension PO. Medication Ordered: GI Cocktail WHITE PO 50 mL (NOW).
--- NOTE | 2016-10-14 14:26 | ED DISCHARGE INSTRUCTIONS ---
Patient: ERIC CHIANG General Instructions [facility] VisitID: [id number] [address] [place] [address] 41y, M Registration Date/Time: 10/12/2016 Atypical chest pain .12 lead EKG performed. INSTRUCTIONS No strenuous activity. Rest. Avoid stimulants (such as cigarettes, coffee, cold medicines, sinus medicines, street drugs). Do not smoke. No alcohol. Warnings: Further evaluation is necessary. SEDATIVE MEDICATION: You were given sedative medication during your visit. Do not drive or operate dangerous machinery. GENERAL WARNINGS: Return or contact your physician immediately if your condition worsens or changes unexpectedly, if not improving as expected, or if other problems arise. Prescription Medications: Hydrocodone/APAP 5mg/325mg: take 1 to 2 orally every 6 hours as needed for pain. Dispense fifteen (15). No refills. Ibuprofen 600mg tablets: take 1 tablet orally every 8 hours as needed for pain. Dispense thirty (30). No refills. Soma 350 mg: Take 1 orally every 6 hours as needed for muscle spasm. Dispense twenty (20). No refills. Substitution is permissible. Understanding of the discharge instructions verbalized by patient. Follow-up with: [facility], , , [address], , [place], [address] Follow up in two days. Call for the next available appointment. ADDITIONAL INFORMATION Chest Pain, Noncardiac Based on your visit today, the exact cause of your chest pain is not certain. Your condition does not seem serious and your pain does not appear to be coming from your heart. However, sometimes the signs of a serious problem take more time to appear. Therefore, please watch for the warning signs listed below. Home Care: Rest today and avoid strenuous activity. Take any prescribed medicine as directed. Follow Up with your doctor or this facility as instructed or if you do not start to feel better within 24 hours. Get Prompt Medical Attention if any of the following occur: A change in the type of pain: if it feels different, becomes more severe, lasts longer, or begins to spread into your shoulder, arm, neck, jaw or back Shortness of breath or increased pain with breathing Cough with dark colored sputum (phlegm) or blood Weakness, dizziness, or fainting Fever of 100.4F (38C) or higher, or as directed by your healthcare provider Swelling, pain or redness in one leg You have been given the following additional information: Chest Pain, Noncardiac No strenuous activity. Rest. (Electronically signed by Palomo Linares MD 10/13/2016 12:38)
--- NOTE | 2016-10-14 14:26 | ED MED RECONCILIATION SUMMARY ---
Patient: ERIC CHIANG Medication Reconciliation Report [facility] VisitID: [id number] [address] [place] [address] 41y, M Registration Date/Time: 10/12/2016 Weight: 95.2 kg Height/Length: 73 in. BMI: 27.7 ALLERGIES: Penicillins The patient's Home Medications are listed below: NONE. The source(s) of the original Home Medication information: Not obtained. The following Medications were given to the patient in the Emergency Department: Aspirin [PO] PO 325 mg, administered: 10/12/2016 9:35:00 AM Toradol [IVP] IVP 30 mg, administered: 10/12/2016 12:12:00 PM Ativan [IVP] IVP 0.5 mg, administered: 10/12/2016 12:14:00 PM Nitroglycerin [SL] SL 0.4 mg, administered: 10/12/2016 1:02:00 PM Nitroglycerin [SL] SL 0.4 mg, administered: 10/12/2016 1:07:00 PM Nitroglycerin [SL] SL 0.4 mg, administered: 10/12/2016 1:13:00 PM GI COCKTAIL WHITE [PO] PO 50 mL, administered: 10/12/2016 2:36:00 PM The following Medications were prescribed to the patient: Hydrocodone/APAP 5mg/325mg: take 1 to 2 orally every 6 hours as needed for pain. Dispense fifteen (15). No refills. -- Palomo Linares MD Ibuprofen 600mg tablets: take 1 tablet orally every 8 hours as needed for pain. Dispense thirty (30). No refills. -- Palomo Linares MD Soma 350 mg: Take 1 orally every 6 hours as needed for muscle spasm. Dispense twenty (20). No refills. Substitution is permissible. -- Palomo Linares MD
== END 2016-10-12 16:08 | disposition home or self-care (01) ==
LOC: ED SRH 08:11
DX: R07.89 Other chest pain (principal); Z88.0 Allergy status to penicillin; Z87.891 Personal history of nicotine dependence